=== PATIENT | male | born 1960 | race Caucasian/White ===

== ENCOUNTER 2016-08-31 05:31 | Emergency (ER) | payer OTHER ==
[~2016-08-31] VITALS: Ht 170.2 cm; Wt 93.5 kg
[~2016-08-31 05:31] MED LIST: ACET325T38 PO; ASPI81TA3 PO; ATOR80TA75 PO; BEN50 PO; CLIN-73 PO; DIPH25CA6 PO; DOXY-220 PO; FLUT16SP17 NASAL; HYDR-3498 PO; IBUP-1542 PO; LORA10TA3 PO; METO-429 PO; MUPI15CR9 TOP; MUPI22OI2 TOP; NAPR-688 PO; NICO-512 TOP; OMEP40CA6 PO; PANT40TA3 PO; TRAM50TA2 PO; TRAZ50TA18 PO
[2016-08-31 05:37] VITALS: Ht 170.2 cm; Wt 93.5 kg
[2016-08-31] MEDS ORDERED: CEPH-443 PO (06:46)
[2016-08-31] MEDS ORDERED: HC1C30 TOP (06:46)
--- NOTE | 2016-08-31 08:41 | ERD ---
DATE OF SERVICE: HISTORY OF PRESENT ILLNESS: The patient is a 55-year-old male complaining of a rash on the back of his neck. He states that he has been using mupirocin cream on it, but it is not alleviating his sym ptoms. He describes it as a burning stinging type sensation that has been going on for the last wee k. He has never had anything like this before. Denies any use of irritating factors. ALLERGIES: DENIES ALLERGIES TO MEDICATIONS. PAST MEDICAL HISTORY: Denies. PAST SURGICAL HISTORY: Denies. HOSPITALIZATIONS: Denies. REVIEW OF SYSTEMS: A 12-point review of systems was done. Refer to HPI for positives, all other sy stems negative. PHYSICAL EXAMINATION VITAL SIGNS: Temperature is 97.1, pulse 86, blood pressure is 115/73, respiratory rate 20, O2 satur ation 97% on room air. Pain intensity of 5/10. GENERAL: The patient is well developed and appropriate for usual state of health, in no apparent di stress. HEENT: Atraumatic. Conjunctivae are pink. Pupils equal, round, and reactive to light. There is no s cleral icterus. Tympanic membranes clear bilaterally. Oropharynx clear. No nystagmus or photophobia . CHEST: Clear to auscultation bilaterally. There are no rales, wheezes or rhonchi. HEART: Regular rate and rhythm. No murmurs, clicks, rubs or gallops. No S3 or S4. SKIN: The patient has a small erythematous bumps with purulent filled centers located around the ne ck. DIAGNOSIS: Folliculitis. MEDICAL DECISION MAKING: I have low suspicion for life threatening disease or parasitic infection, low suspicion for a fungal infection. DISCHARGE: The patient is discharged stable. Patient given prescription for Keflex and hydrocortis one and told to continue using mupirocin cream on site. The patient told if symptoms change or wors en, to return to the ER. All other questions answered at time of discharge. Discharge summary give n at the time of departure. The patient understood and complied with plan. Dictated By: JOY REID for LAKESHA ARTHUR/ROE Conf#: [id number] DID#: [id number]
== END 2016-08-31 07:08 | disposition home or self-care (01) ==
LOC: FTE 05:31
DX: L02.12 Furuncle of neck (principal); Z87.891 Personal history of nicotine dependence
CPT/HCPCS: 99284

== ENCOUNTER 2016-11-05 15:31 | Emergency (ER) | payer OTHER ==
[~2016-11-05] VITALS: Ht 160 cm; Wt 89.0 kg
[~2016-11-05 15:31] MED LIST changes: +CEPH-443 PO; +HC1C30 TOP
[2016-11-05 15:34] VITALS: Ht 160 cm; Wt 89.0 kg
[2016-11-05] MEDS ORDERED: KETOROLAC 30 MG INJ IM STA (17:23)
[2016-11-05] MEDS ORDERED: HYDROCODONE/APAP (5/325) TAB PO ONE (17:30)
--- NOTE | 2016-11-05 17:57 | RADRPT ---
PROCEDURE: XR Knee. CLINICAL INDICATION: Left knee pain. TECHNIQUE: Three views of the left knee are available for review. COMPARISON: None available FINDINGS: No acute fracture or dislocation is seen. Mild tricompartmental degenerative changes of knee are not ed. No radiopaque foreign body is identified. Alignment is anatomic. No significant soft tissue swe lling is noted. A surgical clip projects over the medial left leg. IMPRESSION: 1. No acute fracture or dislocation. 2. Mild tricompartmental degenerative changes of knee. RPTAT: HH .Misha Wagner MD, MD Date Time Electronically viewed and signed by .Misha Wagner MD, on 11/05/2016 17:57 .N/
--- NOTE | 2016-11-05 18:08 | ERD ---
ER Documentation Chief Complaint Date/Time DATE: 11/05/16 TIME: 18:02 Chief Complaint left knee pain HPI This is a 56-year-old male presenting to emergency department for left knee pain 1 month. Patient states over the last month he has had increased stiffness and pain to left knee especially when he has had prolonged sitting. Patient states pain, stiffness and swelling has gotten progressively worse each day. No prolonged immobilization or recent trauma or injury. Denies any numbness or tingling. No loss of sensation. No back pain. No fevers or chills. Patient has been taking ibuprofen with some relief of pain. Patient also reports Patient also reports left eye floaters with lateral movement to left eye. No eye pain or tearing. Denies any curtain coming down over vision. No loss of vision or change in vision. Patient's last eye exam was 4 months ago. Patient was seen by his primary care provider for this and was told to go to chemical research worker. ROS All systems reviewed and are negative except as per history of present illness. Medications Home Meds Active Scripts Ibuprofen* (Motrin*) 800 Mg Tab, 800 MG PO Q6, #15 TAB Prov:JAN HATFIELD NP 11/05/16 Hydrocortisone* Topical (Hydrocortisone* Topical) 1%-28.35 Gm Cream..g., 1 APPLIC TOP Q6 Y for ITCHING, #1 TUB Prov:LIZETH BRADSHAW PA-C 08/31/16 Cephalexin* (Keflex*) 500 Mg Capsule, 500 MG PO QID for 5 Days, CAP Prov:LIZETH BRADSHAW PA-C 08/31/16 Clindamycin Hcl* (Clindamycin Hcl*) 300 Mg Capsule, 300 MG PO QID for 7 Days, CAP Prov:SAHIL GALLEGOS MD 07/10/16 Mupirocin* (Bactroban*) 2% -22 Gram Oint...g., 1 APPLIC TOP BID for 7 Days, EA Prov:SAHIL GALLEGOS MD 07/10/16 Mupirocin* (Bactroban*) 2% -22 Gram Oint...g., 1 APPLIC TOP BID for 7 Days, EA Prov:LAKESHA FRANKEL MD 04/01/16 Clindamycin Hcl* (Clindamycin Hcl*) 300 Mg Capsule, 300 MG PO TID for 10 Days, CAP Prov:LAKESHA FRANKEL MD 04/01/16 Pantoprazole* (Protonix*) 40 Mg Tablet., 40 MG PO DAILY for 30 Days, #20 TAB Prov:SAM CRAIN 02/12/16 Ibuprofen* (Motrin*) 600 Mg Tab, 600 MG PO Q6, #30 TAB Prov:SAM CRAIN 02/12/16 Hydrocodone Bit-Acetaminophen* ([place]*) 5-325 Mg Tab, 1 TAB PO Q6 Y for PAIN, # 20 TAB Prov:SAM CRAIN 02/12/16 Doxycycline Monohydrate* (Doxycycline Monohydrate*) 100 Mg Tablet, 100 MG PO BID for 14 Days, TAB Prov:SAHIL GALLEGOS MD 11/07/15 Diphenhydramine Hcl (Benadryl) 25 Mg Cap, 25 MG PO TID, #30 CAP Prov:DALI DOVE DO 08/24/15 Mupirocin Calcium* (Mupirocin*) 2% - 15 Gram Cream..g., 1 APPLIC TOP TID, #1 TUB Prov:DALI DOVE DO 08/24/15 Clindamycin Hcl* (Clindamycin Hcl*) 300 Mg Capsule, 300 MG PO Q8, #21 CAP Prov:DALI DOVE DO 08/24/15 Ibuprofen* (Ibuprofen*) 600 Mg Tablet, 600 MG PO TID for PAIN, #30 TAB Prov:ESTEFANIA JIMENEZ MD 08/15/15 Mupirocin Calcium* (Mupirocin*) 2% - 15 Gram Cream..g., 1 APPLIC TOP TID, #1 TUB Prov:ESTEFANIA JIMENEZ MD 08/15/15 Loratadine* (Loratadine*) 10 Mg Tablet, 10 MG PO DAILY for NASAL CONGESTION, # 15 TAB Prov:ESTEFANIA JIMENEZ MD 08/15/15 Diphenhydramine Hcl* (Benadryl*) 50 Mg Cap, 50 MG PO Q6 Y for ITCHING, #30 CAP Prov:MARA MARINELLI PA-C 08/08/15 Reported Medications Omeprazole* (Omeprazole*) 40 Mg Capsule.dr, 40 MG PO DAILY, #30 CAP 08/15/15 Fluticasone Propionate* (Fluticasone Propionate* Nasal) 50 Mcg/[place] - 16 Gm [place].susp, 2 SPRAYS NASAL DAILY, #16 08/15/15 Aspirin (Aspirin) 81 Mg Chew, 81 MG PO DAILY, #90 08/15/15 Nicotine* (Nicoderm* Patch) 14 mg/day Patch, 1 PATCH TOP DAILY, #28 08/15/15 Trazodone Hcl* (Desyrel*) 50 Mg Tab, 50 MG PO QHS Y for SLEEP, #30 08/15/15 Metoprolol Tartrate* (Lopressor*) 50 Mg Tab, 50 MG PO BID, #60 16 Atorvastatin* (Atorvastatin*) 80 Mg Tablet, 80 MG PO DAILY, #30 16 Tramadol HCl (Tramadol HCl) 50 Mg Tablet, 50 MG PO BID Y for PAIN LEVEL 1-5, #60 16 Acetaminophen (Q-Pap) 325 Mg Tablet, 1-2 TAB PO Q4 Y for PAIN, #50 16 Naproxen* (Naproxen*) 500 Mg Tablet, 500 MG PO BID, #10 08/15/15 Allergies Allergies: Coded Allergies: No Known Drug Allergies (Verified Allergy, Mild, 08/31/16) PMhx/Soc History of Surgery: Yes (TRIPLE BYPASS (06/12/2015) , APPENDECTOMY(1991)) Anesthesia Reaction: No Hx Neurological Disorder: No Hx Respiratory Disorders: No Hx Cardiac Disorders: Yes ([place]) Hx Psychiatric Problems: No Hx Miscellaneous Medical Probl: No Hx Alcohol Use: No (quit) Hx Substance Use: No (quit) Hx Tobacco Use: No Smoking Status: Former smoker Physical Exam Vitals Vital Signs Date Time Temp Pulse Resp B/P Pulse Ox O2 Delivery O2 Flow Rate FiO2 11/05/16 15:34 98.0 76 18 132/63 99 Physical Exam Const: No acute distress, alert Head: Atraumatic Eyes: Normal Conjunctiva. No subconjunctival hemorrhage. PERRL. extra ocular movements intact. No pain with ocular movements. ENT: Normal External Ears, Nose and Mouth. Neck: Full range of motion..~ No meningismus. Resp: Clear to auscultation bilaterally Cardio: Regular rate and rhythm, no murmurs Abd: Soft, non tender, non distended. Normal bowel sounds Skin: No petechiae or rashes Back: No midline or flank tenderness Ext: Left knee erythema and mild swelling. No calf tenderness. Negative Homans sign. Neur: Awake and alert Psych: Normal Mood and Affect Results 24 hrs Current Medications Medications (Trade) Dose Ordered Sig/Fara Route PRN Reason Start Time Stop Time Status Last Admin Dose Admin Ketorolac Tromethamine (Toradol) 30 mg ONCE STAT IM 11/05/16 17:23 11/05/16 17:25 DC 11/05/16 17:31 Acetaminophen/ Hydrocodone Bitart ([place] (5/325)) 1 tab ONCE ONCE PO 11/05/16 17:30 11/05/16 17:36 DC Procedures/MDM ED COURSE: The patient was stable throughout ED course. I kept the patient and/or family informed of laboratory and diagnostic imaging results throughout the ED course. Imaging Left knee x-ray Patient: MIRIAM TROY : 1960 Age: 56 Sex: M MR #: [id number] DOS: 11/05/161722 Ordering MD: JAN HATFIELD NP Location: [facility] Room/Bed: PROCEDURE: XR Knee. CLINICAL INDICATION: Left knee pain. TECHNIQUE: Three views of the left knee are available for review. COMPARISON: None available FINDINGS: No acute fracture or dislocation is seen. Mild tricompartmental degenerative changes of knee are noted. No radiopaque foreign body is identified. Alignment is anatomic. No significant soft tissue swelling is noted. A surgical clip projects over the medial left leg. IMPRESSION: 1. No acute fracture or dislocation. 2. Mild tricompartmental degenerative changes of knee. Venous ultrasound left lower external Patient: MIRIAM TROY : 1960 Age: 56 Sex: M MR #: [id number] DOS: 11/05/161722 Ordering MD: JAN HATFIELD NP Location: [facility] Room/Bed: PROCEDURE: US Lower extremity Venous. CLINICAL INDICATION: Left leg edema, pain TECHNIQUE: Multiple sonographic images of the left lower extremity deep venous system was obtained utilizing grayscale, color-flow, compressive sonography and doppler imaging with augmentation. The images were reviewed on a PACS workstation. COMPARISON: None. FINDINGS: There is normal compressibility and flow within the left common femoral, femoral , posterior tibial, peroneal and popliteal veins. RPTAT: AA IMPRESSION: No sonographic evidence for deep venous thrombosis. Patient: MIRIAM TROY : 1960 Age: 56 Sex: M MR #: [id number] DOS: 11/05/16 0000 Ordering MD: JAN HATFIELD NP Location: [facility] Room/Bed: PROCEDURE: Ultrasound of the globes bilaterally CLINICAL INDICATION: Abnormal vision with floaters in the left eye TECHNIQUE: Real time sonographic imaging of both the left and right globes is performed and 27 [place]aherty scale/Doppler images are submitted to the PACS for review COMPARISON: None available FINDINGS: There is normal morphology, echogenicity and blood flow related to both the left and right globe with no anterior or posterior chamber abnormality. There is no evidence of retinal detachment. RPTAT:HJJR IMPRESSION: Unremarkable ultrasound of the globes bilaterally without evidence of retinal detachment or findings to explain the patient's provided history. MDM: This is a 56-year-old male presenting to the emergency department for left knee pain 1 month. Patient has mild swelling and erythema to left knee. Pain is to the medial aspect of the left knee. No calf pain or tenderness. Negative Homans sign. Patient able to bear some weight. Patient has been using cane. Patient given Toradol on the ED. Refusing [place]. No signs or symptoms of respiratory distress. No chest pain, shortness of breath or difficulty breathing. Vital signs are stable. Remains afebrile. Patient also complains of floaters to left eye with lateral movement. Denies eye pain, blurry vision, change in vision or curtain coming down over vision. Denies foreign body sensation or itching. No tearing or discharge from left eye. X-ray left knee reviewed by raadioligist as no acute fracture or dislocation with mild tricompartmental degenerative changes of knee. US left lower extremity reviewed by radiologist as no sonographic evidence for deep vein thrombosis. A knee immobilizer was applied to left lower extremity and patient remains neurovascularly inact pre and post splint placement. US orbits reviewed by radiologist as unremarkable ultrasound of the globes bilaterally without evidence of retinal detachment or findings to explain the patient's provided history. Low suspicion for acute dislocation or fracture. Low suspicion for retinal detachment or other ophthalmologic emergencies. Patient is appropriate for outpatient management and instructed to follow up with PCP and chemical research worker in the next 2-3 days for reassessment and additional management. Patient verbalizes understanding. All questions answered at discharge. Departure Diagnosis: Primary Impression: Knee pain Laterality: left Chronicity: acute Qualified Code: M25.562 - Acute pain of left knee Additional Impression: Vitreous floaters of left eye Condition: Stable JAN HATFIELD NP Nov 05, 2016 18:08
--- NOTE | 2016-11-05 18:30 | RADRPT ---
PROCEDURE: US Lower extremity Venous. CLINICAL INDICATION: Left leg edema, pain TECHNIQUE: Multiple sonographic images of the left lower extremity deep venous system was obtained utilizing grayscale, color-flow, compressive sonography and doppler imaging with augmentation. The images were reviewed on a PACS workstation. COMPARISON: None. FINDINGS: There is normal compressibility and flow within the left common femoral, femoral, posterior tibial, peroneal and popliteal veins. RPTAT: AA IMPRESSION: No sonographic evidence for deep venous thrombosis. .Sebastian Garcia MD, MD Date Time Electronically viewed and signed by .Sebastian Garcia MD, on 11/05/2016 18:30 .S/
--- NOTE | 2016-11-05 21:18 | RADRPT ---
PROCEDURE: Ultrasound of the globes bilaterally CLINICAL INDICATION: Abnormal vision with floaters in the left eye TECHNIQUE: Real time sonographic imaging of both the left and right globes is performed and 27 gra y scale/Doppler images are submitted to the PACS for review COMPARISON: None available FINDINGS: There is normal morphology, echogenicity and blood flow related to both the left and right globe wit h no anterior or posterior chamber abnormality. There is no evidence of retinal detachment. RPTAT:HJJR IMPRESSION: Unremarkable ultrasound of the globes bilaterally without evidence of retinal detachment or findings to explain the patient's provided history. Physician Sandro Date Time Electronically viewed and signed by Physician Sandro on 11/05/2016 21:18 /
[2016-11-05] MEDS ORDERED: IBUP800T25 PO (21:41)
== END 2016-11-05 21:53 | disposition home or self-care (01) ==
LOC: FTE 15:31
DX: M25.562 Pain in left knee (principal); H43.392 Other vitreous opacities, left eye; Z79.82 Long term (current) use of aspirin; Z87.891 Personal history of nicotine dependence
CPT/HCPCS: 29505; 73562; 76536; 93971; 96372; J1885; Z7502

== ENCOUNTER 2017-09-27 07:08 | Emergency (ER) | END 2017-09-27 11:20 | disposition home or self-care (01) ==

== ENCOUNTER 2017-12-31 02:53 | Emergency (ER) | END 2017-12-31 05:23 | disposition home or self-care (01) ==

== ENCOUNTER 2018-07-08 09:52 | Emergency (ER) | payer OTHER ==
[~2018-07-08] VITALS: Wt 91.0 kg
[~2018-07-08 09:52] MED LIST changes: +ASPI-831 PO; -ASPI81TA3 PO; +ATOR-2 PO; -ATOR80TA75 PO; -CLIN-73 PO; +CLIN300C10 PO; -DOXY-220 PO; +DOXY100T21 PO; +HYDR-4011 PO; +IBUP800T48 PO; +NAPR-985 PO; +TRAZ-149 PO; -TRAZ50TA18 PO
[2018-07-08 09:55] VITALS: BP 178/77; PULSE 78; RESP 18
--- NOTE | 2018-07-08 10:34 | ERD ---
ER Documentation Chief Complaint Chief Complaint OLD LAC R MIDDLE FINGER HPI 57-year-old male, previously healthy, presents to the emergency department, complaining of a chronic skin wound located in lateral nail fold of the right middle finger. No active bleeding, no fever or chills, no purulent discharge. Patient has history of eczema. ROS All systems reviewed and are negative except as per history of present illness. Medications Home Meds Active Scripts Hydrocortisone* Topical (Hydrocortisone* Topical) 2.5%-28.3 Gm Cream..g., 1 APPLIC TOP BID, #2 TUB Prov:AMBROCIO MURPHY MD 07/08/18 Hydrocodone/Acetaminophen ([place] 5-325 Tablet) 1 Each Tablet, 1 TAB PO Q6H PRN for PAIN, #7 TAB Prov:LIZETH BRADSHAW PA-C 12/31/17 Naproxen* (Naprosyn*) 500 Mg Tablet, 500 MG PO BID PRN for PAIN AND/OR INFLAMMATION, #30 TAB Prov:LIZETH BRADSHAW PA-C 12/31/17 Tramadol HCl (Tramadol HCl) 50 Mg Tablet, 50 MG PO Q6 PRN for PAIN, #6 TAB Prov:ANDREI OSUNA MD 09/27/17 Ibuprofen* (Motrin*) 800 Mg Tab, 800 MG PO Q6, #15 TAB Prov:JAN HATFIELD NP 11/05/16 Hydrocortisone* Topical (Hydrocortisone* Topical) 1%-28.35 Gm Cream..g., 1 APPLIC TOP Q6 PRN for ITCHING, #1 TUB Prov:LIZETH BRADSHAW PA-C 08/31/16 Cephalexin* (Keflex*) 500 Mg Capsule, 500 MG PO QID for 5 Days, CAP Prov:LIZETH BRADSHAW PA-C 08/31/16 Clindamycin Hcl* (Clindamycin Hcl*) 300 Mg Capsule, 300 MG PO QID for 7 Days, CAP Prov:SAHIL GALLEGOS MD 07/10/16 Mupirocin* (Bactroban*) 2% -22 Gram Oint...g., 1 APPLIC TOP BID for 7 Days, EA Prov:SAHIL GALLEGOS MD 07/10/16 Mupirocin* (Bactroban*) 2% -22 Gram Oint...g., 1 APPLIC TOP BID for 7 Days, EA Prov:LAKESHA FRANKEL MD 04/01/16 Clindamycin Hcl* (Clindamycin Hcl*) 300 Mg Capsule, 300 MG PO TID for 10 Days, CAP Prov:LAKESHA FRANKEL MD 04/01/16 Pantoprazole* (Protonix*) 40 Mg Tablet.dr, 40 MG PO DAILY for 30 Days, #20 TAB Prov:SAM CRAIN 02/12/16 Ibuprofen* (Motrin*) 600 Mg Tab, 600 MG PO Q6, #30 TAB Prov:SAM CRAIN 02/12/16 Hydrocodone Bit-Acetaminophen* ([place]*) 5-325 Mg Tab, 1 TAB PO Q6 PRN for PAIN, #20 TAB Prov:SAM CRAIN 02/12/16 Doxycycline Monohydrate* (Doxycycline Monohydrate*) 100 Mg Tablet, 100 MG PO BID for 14 Days, TAB Prov:SAHIL GALLEGOS MD 11/07/15 Diphenhydramine Hcl (Benadryl) 25 Mg Cap, 25 MG PO TID, #30 CAP Prov:DALI DOVE DO 08/24/15 Mupirocin Calcium* (Mupirocin*) 2% - 15 Gram Cream..g., 1 APPLIC TOP TID, #1 TUB Prov:DALI DOVE DO 08/24/15 Clindamycin Hcl* (Clindamycin Hcl*) 300 Mg Capsule, 300 MG PO Q8, #21 CAP Prov:DALI DOVE DO 08/24/15 Ibuprofen* (Ibuprofen*) 600 Mg Tablet, 600 MG PO TID for PAIN, #30 TAB Prov:ESTEFANIA JIMENEZ MD 08/15/15 Mupirocin Calcium* (Mupirocin*) 2% - 15 Gram Cream..g., 1 APPLIC TOP TID, #1 TUB Prov:ESTEFANIA JIMENEZ MD 08/15/15 Loratadine* (Loratadine*) 10 Mg Tablet, 10 MG PO DAILY for NASAL CONGESTION, #15 TAB Prov:ESTEFANIA JIMENEZ MD 08/15/15 Diphenhydramine Hcl* (Benadryl*) 50 Mg Cap, 50 MG PO Q6 PRN for ITCHING, #30 CAP Prov:MARA MARINELLI PA-C 08/08/15 Reported Medications Omeprazole* (Omeprazole*) 40 Mg Capsule.dr, 40 MG PO DAILY, #30 CAP 08/15/15 Fluticasone Propionate* (Fluticasone Propionate* Nasal) 50 Mcg/[place] - 16 Gm [place].susp, 2 SPRAYS NASAL DAILY, #16 08/15/15 Aspirin (Aspirin) 81 Mg Chew, 81 MG PO DAILY, #90 08/15/15 Nicotine* (Nicoderm* Patch) 14 mg/day Patch, 1 PATCH TOP DAILY, #28 08/15/15 Trazodone Hcl* (Desyrel*) 50 Mg Tab, 50 MG PO QHS PRN for SLEEP, #30 08/15/15 Metoprolol Tartrate* (Lopressor*) 50 Mg Tab, 50 MG PO BID, #60 08/15/15 Atorvastatin* (Atorvastatin*) 80 Mg Tablet, 80 MG PO DAILY, #30 08/15/15 Tramadol HCl (Tramadol HCl) 50 Mg Tablet, 50 MG PO BID PRN for PAIN LEVEL 1-5, #60 16 Acetaminophen (Q-Pap) 325 Mg Tablet, 1-2 TAB PO Q4 PRN for PAIN, #50 08/15/15 Naproxen* (Naproxen*) 500 Mg Tablet, 500 MG PO BID, #10 08/15/15 Allergies Allergies: Coded Allergies: No Known Drug Allergies (Verified Allergy, Mild, 08/31/16) PMhx/Soc History of Surgery: Yes (CABG x2,[place]) Anesthesia Reaction: No Hx Neurological Disorder: No Hx Respiratory Disorders: No Hx Cardiac Disorders: No Hx Psychiatric Problems: No Hx Miscellaneous Medical Probl: No Hx Alcohol Use: Yes (Sober since 2014) Hx Substance Use: No Hx Tobacco Use: Yes (Quit since 2014) Smoking Status: Never smoker Physical Exam Vitals Vital Signs Date Temp Pulse Resp B/P (MAP) Pulse Ox O2 O2 Flow FiO2 Time Delivery Rate 07/08/18 98.0 78 18 178/77 99 09:55 (110) Physical Exam Const: No acute distress Head: Atraumatic Eyes: Normal Conjunctiva ENT: Normal External Ears, Nose and Mouth. Neck: Full range of motion. No meningismus. Resp: Clear to auscultation bilaterally Cardio: Regular rate and rhythm, no murmurs Abd: Soft, non tender, non distended. Normal bowel sounds Skin: Right third finger: Chronic fissure on the distal lateral nail fold, no active bleeding, no evidence of infection. Back: No midline or flank tenderness Ext: No cyanosis, or edema Neur: Awake and alert Psych: Normal Mood and Affect Procedures/MDM Vital signs stable, Differential diagnosis include but not limited to: contact dermatitis, impetigo, seborrheic dermatitis, scabies, acute allergic reaction, medication side effect. low suspicion for systemic infectious process, angioedema, anaphylactic shock. Physical examination and clinical presentation consistent most likely with topic dermatitis. Results and clinical impression discussed with the patient who agree with management. The patient is stable to be treated outpatient and will be discharged home with a Rx for topical mild potency steroids, some side effects of prescribed medications (skin atrophy, nausea, vomiting, diarrhea, interactions with other medications) were reviewed. The patient needs a follow up with the primary care provider in the next 48h. If symptoms persist, worsen or new symptoms develop, then patient should return to the ED immediately. Instructions explained and given directly by me with acknowledgment and demonstrated understanding. Disclaimer: Inadvertent spelling and grammatical errors are likely due to EHR/dictation software use and do not reflect on the overall quality of patient care. Also, please note that the electronic time recorded on this note does not necessarily reflect the actual time of the patient encounter. Departure Diagnosis: Primary Impression: Eczema Condition: Stable Additional Instructions: Thank you very much for allowing us to participate in your care. Your health and safety is our top priority at [facility]. Call your primary care doctor TOMORROW for an appointment during the next 2-4 days and bring all the information and medications prescribed. Have prescriptions filled and follow precisely the directions on the label. If the symptoms get worse and your provider is unavailable, return to the Emergency Department immediately. AMBROCIO MURPHY MD Jul 08, 2018 10:34
[2018-07-08] MEDS ORDERED: HC30CR25 TOP (10:36)
== END 2018-07-08 11:00 | disposition home or self-care (01) ==
LOC: FTE 09:52
DX: L30.9 Dermatitis, unspecified (principal); Z79.82 Long term (current) use of aspirin; Z87.891 Personal history of nicotine dependence; Z95.1 Presence of aortocoronary bypass graft
CPT/HCPCS: 99282

== ENCOUNTER 2018-08-28 15:17 | Emergency (ER) | payer OTHER ==
[~2018-08-28] VITALS: Ht 167.6 cm; Wt 85.5 kg
[~2018-08-28 15:17] MED LIST changes: +HC30CR25 TOP
[2018-08-28 15:32] VITALS: Ht 167.6 cm; Wt 85.5 kg
--- NOTE | 2018-08-28 18:45 | ERD ---
ER Documentation Chief Complaint Chief Complaint Complains of a cough cold and flu like symptoms x 3 days ROS All systems reviewed and are negative except as per history of present illness. Medications Home Meds Active Scripts Hydrocortisone* Topical (Hydrocortisone* Topical) 2.5%-28.3 Gm Cream..g., 1 APPLIC TOP BID, #2 TUB Prov:AMBROCIO MURPHY MD 07/08/18 Hydrocodone/Acetaminophen ([place] 5-325 Tablet) 1 Each Tablet, 1 TAB PO Q6H PRN for PAIN, #7 TAB Prov:LIZETH BRADSHAW PA-C 12/31/17 Naproxen* (Naprosyn*) 500 Mg Tablet, 500 MG PO BID PRN for PAIN AND/OR INFLAMMATION, #30 TAB Prov:LIZETH BRADSHAW PA-C 12/31/17 Tramadol HCl (Tramadol HCl) 50 Mg Tablet, 50 MG PO Q6 PRN for PAIN, #6 TAB Prov:ANDREI OSUNA MD 09/27/17 Ibuprofen* (Motrin*) 800 Mg Tab, 800 MG PO Q6, #15 TAB Prov:JAN HATFIELD NP 11/05/16 Hydrocortisone* Topical (Hydrocortisone* Topical) 1%-28.35 Gm Cream..g., 1 APPLIC TOP Q6 PRN for ITCHING, #1 TUB Prov:LIZETH BRADSHAW PA-C 08/31/16 Cephalexin* (Keflex*) 500 Mg Capsule, 500 MG PO QID for 5 Days, CAP Prov:LIZETH BRADSHAW PA-C 08/31/16 Clindamycin Hcl* (Clindamycin Hcl*) 300 Mg Capsule, 300 MG PO QID for 7 Days, CAP Prov:SAHIL GALLEGOS MD 07/10/16 Mupirocin* (Bactroban*) 2% -22 Gram Oint...g., 1 APPLIC TOP BID for 7 Days, EA Prov:SAHIL GALLEGOS MD 07/10/16 Mupirocin* (Bactroban*) 2% -22 Gram Oint...g., 1 APPLIC TOP BID for 7 Days, EA Prov:LAKESHA FRANKEL MD 04/01/16 Clindamycin Hcl* (Clindamycin Hcl*) 300 Mg Capsule, 300 MG PO TID for 10 Days, CAP Prov:LAKESHA FRANKEL MD 04/01/16 Pantoprazole* (Protonix*) 40 Mg Tablet., 40 MG PO DAILY for 30 Days, #20 TAB Prov:SAM CRAIN 02/12/16 Ibuprofen* (Motrin*) 600 Mg Tab, 600 MG PO Q6, #30 TAB Prov:SAM CRAIN 02/12/16 Hydrocodone Bit-Acetaminophen* ([place]*) 5-325 Mg Tab, 1 TAB PO Q6 PRN for PAIN, #20 TAB Prov:SAM CRAIN 02/12/16 Doxycycline Monohydrate* (Doxycycline Monohydrate*) 100 Mg Tablet, 100 MG PO BID for 14 Days, TAB Prov:SAHIL GALLEGOS MD 11/07/15 Diphenhydramine Hcl (Benadryl) 25 Mg Cap, 25 MG PO TID, #30 CAP Prov:DALI DOVE DO 08/24/15 Mupirocin Calcium* (Mupirocin*) 2% - 15 Gram Cream..g., 1 APPLIC TOP TID, #1 TUB Prov:DALI DOVE DO 08/24/15 Clindamycin Hcl* (Clindamycin Hcl*) 300 Mg Capsule, 300 MG PO Q8, #21 CAP Prov:DALI DOVE DO 08/24/15 Ibuprofen* (Ibuprofen*) 600 Mg Tablet, 600 MG PO TID for PAIN, #30 TAB Prov:ESTEFANIA JIMENEZ MD 08/15/15 Mupirocin Calcium* (Mupirocin*) 2% - 15 Gram Cream..g., 1 APPLIC TOP TID, #1 TUB Prov:ESTEFANIA JIMENEZ MD 08/15/15 Loratadine* (Loratadine*) 10 Mg Tablet, 10 MG PO DAILY for NASAL CONGESTION, #15 TAB Prov:ESTEFANIA JIMENEZ MD 08/15/15 Diphenhydramine Hcl* (Benadryl*) 50 Mg Cap, 50 MG PO Q6 PRN for ITCHING, #30 CAP Prov:MARA MARINELLI PA-C 08/08/15 Reported Medications Omeprazole* (Omeprazole*) 40 Mg Capsule., 40 MG PO DAILY, #30 CAP 08/15/15 Fluticasone Propionate* (Fluticasone Propionate* Nasal) 50 Mcg/[place] - 16 Gm Qu[place]ene.susp, 2 SPRAYS NASAL DAILY, #16 08/15/15 Aspirin (Aspirin) 81 Mg Chew, 81 MG PO DAILY, #90 08/15/15 Nicotine* (Nicoderm* Patch) 14 mg/day Patch, 1 PATCH TOP DAILY, #28 08/15/15 Trazodone Hcl* (Desyrel*) 50 Mg Tab, 50 MG PO QHS PRN for SLEEP, #30 08/15/15 Metoprolol Tartrate* (Lopressor*) 50 Mg Tab, 50 MG PO BID, #60 16 Atorvastatin* (Atorvastatin*) 80 Mg Tablet, 80 MG PO DAILY, #30 16 Tramadol HCl (Tramadol HCl) 50 Mg Tablet, 50 MG PO BID PRN for PAIN LEVEL 1-5, #60 16 Acetaminophen (Q-Pap) 325 Mg Tablet, 1-2 TAB PO Q4 PRN for PAIN, #50 16 Naproxen* (Naproxen*) 500 Mg Tablet, 500 MG PO BID, #10 08/15/15 Allergies Allergies: Coded Allergies: No Known Drug Allergies (Verified Allergy, Mild, 08/31/16) PMhx/Soc History of Surgery: Yes (CABG x2,Appy) Anesthesia Reaction: No Hx Neurological Disorder: No Hx Respiratory Disorders: No Hx Cardiac Disorders: No Hx Psychiatric Problems: No Hx Miscellaneous Medical Probl: No Hx Alcohol Use: Yes (Sober since 2014) Hx Substance Use: No Hx Tobacco Use: Yes (Quit since 2014) Smoking Status: Never smoker Physical Exam Vitals Vital Signs Date Temp Pulse Resp B/P (MAP) Pulse Ox O2 O2 Flow FiO2 Time Delivery Rate 08/28/18 100.4 18:54 08/28/18 100.4 18:54 08/28/18 101.7 103 20 146/87 96 15:32 (106) Physical Exam Const: No acute distress Head: Atraumatic Eyes: Normal Conjunctiva ENT: Normal External Ears, Nose and Mouth. Neck: Full range of motion. No meningismus. Resp: Clear to auscultation bilaterally Cardio: Regular rate and rhythm, no murmurs Abd: Soft, non tender, non distended. Normal bowel sounds Skin: No petechiae or rashes Back: No midline or flank tenderness Ext: No cyanosis, or edema Neur: Awake and alert Psych: Normal Mood and Affect Results 24 hrs Current Medications Medications Dose Sig/Fara Start Time Status Last (Trade) Ordered Route PRN Stop Time Admin Dose Reason Admin Ibuprofen 600 mg ONCE ONCE 08/28/18 08/28/18 (Motrin) PO 19:00 18:54 08/28/18 19:01 650 mg ONCE ONCE 08/28/18 08/28/18 Acetaminophen PO 19:00 18:54 (Tylenol 08/28/18 19:01 Tab) Oseltamivir 75 mg ONCE ONCE 08/28/18 08/28/18 Phosphate PO 19:00 18:55 (Tamiflu) 08/28/18 19:01 Departure Diagnosis: Primary Impression: Influenza-like symptoms Condition: Stable Patient Instructions: Influenza (Adult) Additional Instructions: Thank you very much for allowing us to participate in your care. Your health and safety is our top priority at [facility]. Call your primary care doctor TOMORROW for an appointment during the next 2-4 days and bring all the information and medications prescribed. Have prescriptions filled and follow precisely the directions on the label. If the symptoms get worse and your provider is unavailable, return to the Emergency Department immediately. AMBROCIO MURPHY MD Aug 28, 2018 18:45
[2018-08-28] MEDS ORDERED: IBUPROFEN 600 MG TAB PO ONE (19:00)
[2018-08-28] MEDS ORDERED: OSELTAMIVIR 75 MG CAP PO ONE (19:00)
[2018-08-28] MEDS ORDERED: ACETAMINOPHEN 325 MG TAB PO ONE (19:00)
[2018-08-28] MEDS ORDERED: BEN50 PO (19:04)
[2018-08-28] MEDS ORDERED: IBUP-1542 PO (19:04)
[2018-08-28] MEDS ORDERED: OSEL75CA23 PO (19:04)
[2018-08-28 20:00] VITALS: BP 144/89; PULSE 102; RESP 18
== END 2018-08-28 20:03 | disposition home or self-care (01) ==
LOC: FTE 15:17
DX: J10.1 Influenza due to other identified influenza virus with other respiratory manifestations (principal); Z87.891 Personal history of nicotine dependence; Z79.82 Long term (current) use of aspirin
CPT/HCPCS: 87400; Z7502; Z7610; 99283